=== PATIENT | male | born 1965 | race Caucasian/White ===

== ENCOUNTER 2023-09-28 11:46 | Outpatient (CLI) | payer MEDICARE, SELFPAY ==
--- NOTE | 2023-09-28 11:54 | XR_ITS ---
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 There is no acute fracture or dislocation. The mortise is intact. Visualized joint spaces are normally aligned. Soft tissues are unremarkable. IMPRESSION: No acute bony abnormality. Reviewed, Interpreted and Dictated by Tony Concepcion MD Transcribed by Hanny Cleary Authenticated and . [facility]
--- NOTE | 2023-09-28 11:54 | XR_ITS ---
FINAL REPORT CLINICAL HISTORY: comparsion to CVA RLE COMPARISON: None FINDINGS: LEFT ANKLE Three views demonstrate no acute fracture or dislocation. The visualized joint spaces are normally aligned. The soft tissues are unremarkable. IMPRESSION: No acute bony abnormality. Reviewed, Interpreted and Dictated by Tony Concepcion MD Transcribed by Hanny Cleary Authenticated and [facility]
--- NOTE | 2023-09-28 11:54 | XR_ITS ---
FINAL REPORT CLINICAL HISTORY: Foot pain..stroke on rt side COMPARISON: None FINDINGS: RIGHT FOOT 3 views of the right foot were obtained. There is no acute fracture or dislocation. There is a bone island within the distal second metatarsal. Minimal calcaneal spurring is noted. Visualized joint spaces are normally aligned. Soft tissues are unremarkable. IMPRESSION: No acute bony abnormality. Reviewed, Interpreted and Dictated by Tony Concepcion MD Transcribed by Hanny Cleary Authenticated and [facility]
--- NOTE | 2023-09-28 11:54 | XR_ITS ---
FINAL REPORT CLINICAL HISTORY: Foot Pain COMPARISON: None FINDINGS: LEFT FOOT Three views of the left foot demonstrate no acute fracture or dislocation. Mild degenerative changes at the midfoot. The visualized joint spaces are normally aligned. The soft tissues are unremarkable. IMPRESSION: Degenerative changes without acute bony abnormality. Reviewed, Interpreted and Dictated by Tony Concepcion MD Transcribed by Hanny Cleary Authenticated and [facility]
== END 2023-09-28 23:59 | disposition home or self-care (01) ==
PROVIDERS: Visit Provider Podiatrist
DX: M20.41 Other hammer toe(s) (acquired), right foot (principal); M20.42 Other hammer toe(s) (acquired), left foot; M79.671 Pain in right foot; M79.672 Pain in left foot; Z86.73 Personal history of transient ischemic attack (TIA), and cerebral infarction without residual deficits; G81.11 Spastic hemiplegia affecting right dominant side; M21.869 Other specified acquired deformities of unspecified lower leg
CPT/HCPCS: 73610; 73630